=== PATIENT | female | born 1970 | race Hispanic/Latino ===

== ENCOUNTER 2019-07-23 07:47 | Outpatient (CLI) | payer OTHER ==
--- NOTE | 2019-07-23 09:45 | CT ---
EXAM: CT chest, abdomen, and pelvis with IV contrast: HISTORY: Recent diagnosis of malignant neoplasm central portion of right female breast. History of prior georges cystectomy and appendectomy. COMPARISON: None FINDINGS: CT THORAX: Lungs: No pulmonary nodule or mass is seen in the lungs bilaterally. No consolidation is identified. Pleura: No pleural effusion. Lymph nodes: No lymphadenopathy. Mediastinum: No acute process of the mediastinal structures. Chest wall: No abnormalities CT ABDOMEN AND PELVIS: Liver: Increased in craniocaudal dimensions measuring 18 cm. Gallbladder: Surgically absent\ Pancreas: Within normal limits. Spleen:Mildly enlarged in AP dimensions measuring 14 cm. Adrenal glands: Within normal limits. Kidneys: Within normal limits. Urinary Bladder: Mostly decompressed. Reproductive organs: A 5.2 cm hypodense mass is seen in the body and fundus of the uterus which does result in mass effect on the endometrial canal which does appear to contain small amount of fluid. This could potentially represent a uterine fibroid. Follow-up pelvic ultrasound may be helpful. Nabot hian cysts are seen in the cervix. Fluid attenuation hypodense cystic structure measuring 4 cm is seen in the right adnexal region likely related to an ovarian cyst. Bowel: A few minimal scattered colonic diverticula are seen. Opacified bowel is otherwise normal in a ppearance. Loops of small bowel are normal in caliber. Adenopathy:No lymphadenopathy within the abdomen or pelvis. Peritoneum: No free fluid or fluid collection is seen. No free intraperitoneal gas is identified. Abdominal wall: No abnormalities seen. Osseous structures: No suspicious lytic or sclerotic osseous lesions are identified. There are degene rative changes seen in the lower thoracic spine. IMPRESSION: 1. Hypodense mass in the body and fundus of the uterus probably representing a uterine fibroid. There is suggestion of small amount of fluid within the endometrial canal. Follow-up ultrasound examination is suggested for further evaluation. 2. Right ovarian cyst. 3. No CT findings to suggest metastatic disease. 4. Moderate enlargement liver and spleen which may be secondary to body habitus. 5. Postcholecystectomy changes.
--- NOTE | 2019-07-23 12:47 | NM ---
WHOLE BODY BONE SCAN: HISTORY: Malignant neoplasm of the central right female breast; back pain RADIOPHARMACEUTICAL: 30 mCi technetium-99m MDP injected intravenously. COMPARISON: None FINDINGS: No abnormal areas of tracer localization seen in the skeleton to suggest metastatic disease. Tracer excretion through the kidneys is within normal limits. IMPRESSION: No scintigraphic evidence of osseous metastatic disease.
[2019-07-23] MEDS ORDERED: Iopamidol 370 76% 100 ML VIAL ONE (13:13)
== END 2019-07-23 07:48 | disposition home or self-care (01) ==
LOC: CT 07:47
PROVIDERS: ATTEND Internal Medicine Hematology & Oncology
DX: C50.111 Malignant neoplasm of central portion of right female breast (principal); N85.8 Other specified noninflammatory disorders of uterus; N83.201 Unspecified ovarian cyst, right side; R16.0 Hepatomegaly, not elsewhere classified; R16.1 Splenomegaly, not elsewhere classified; Z90.49 Acquired absence of other specified parts of digestive tract
CPT/HCPCS: 71260; 74177; 78306; A9503; Q9967

== ENCOUNTER → 2019-10-03 | Day surgery (SDC) | payer OTHER ==
--- NOTE | 2019-10-03 13:38 | ULT ---
RIGHT BREAST ULTRASOUND: 10/03/19 INDICATIONS: Follow-up right breast mass and right axillary lymph node. Patient is currently on chemotherapy. Comparison made to right breast ultrasound dated 06/07/19. FINDINGS: The mass at 12 o'clock, 6 cm from nipple is again noted. This mass has decreased in size when compare d to the prior exam. Maximal AP dimension today recorded at 1.1 cm. Previous maximal AP dimension rec orded at 1.3 cm. Width today recorded at 0.7 cm. Prior width recorded at 1.3 cm. The volume of the ma ss on images does appear significantly decreased. A small somewhat hyperechoic lymph node in the right axilla measures 1.0 cm and appears similar to th e prior exam. No other axillary lymph node identified. IMPRESSION: The hypoechoic mass at 12 o'clock right breast has decreased in size when compared to prior study. POS: [facility]
== END ==
LOC: ULT 12:40
PROVIDERS: ATTEND Internal Medicine Hematology & Oncology
DX: C50.111 Malignant neoplasm of central portion of right female breast (principal); D50.8 Other iron deficiency anemias; Z79.899 Other long term (current) drug therapy
CPT/HCPCS: 93306

== ENCOUNTER 2020-01-11 06:24 | Outpatient (CLI) | payer OTHER ==
[2020-01-12 12:17] LABS: SARS-CoV-2 MS2 Positive; SARS-CoV-2 N Gene Negative; SARS-CoV-2 S Gene Negative; SARS-CoV-2 orf1ab Negative
== END 2020-01-11 06:25 | disposition home or self-care (01) ==
LOC: LABBT 06:24
PROVIDERS: ATTEND Plastic Surgery
DX: Z01.812 Encounter for preprocedural laboratory examination (principal); Z11.59 Encounter for screening for other viral diseases; Z85.3 Personal history of malignant neoplasm of breast
CPT/HCPCS: 87635; U0003

== ENCOUNTER → 2020-01-14 | Day surgery (SDC) | payer OTHER ==
[~2020-01-14] MED LIST: Bupivacaine 0.25% HCL 30 ML VIAL ONE; Dexamethasone 20 MG/5 ML VIAL ONE; EPINEPHrine 1 MG/ML AMP ONE; Fentanyl 100 MCG/2 ML VIAL IV PRN; Fentanyl 100 MCG/2 ML VIAL ONE; Gentamicin 80 MG/2 ML VIAL ONE; Glycopyrrolate 0.2 MG/ML 5 ML SYRINGE ONE; HYDROcodone/Acetaminophen 10/325 mg Tablet PO PRN; Heparin 5,000 UNITS/ML VIAL ONE; Ketorolac Tromethamine 30 MG/ML VIAL IVP PRN; Lidocaine 1% PF 5 ML VIAL ONE; Midazolam HCl 2 mg/2 ml Vial ONE; Ondansetron PF 4 MG/2 ML Vial IVP PRN; Ondansetron PF 4 MG/2 ML Vial ONE; PHENYLEPHRINE-NS 100 MCG/ML 10 ML SYRINGE ONE; PROPOFOL 200 MG/20 ML VIAL ONE; Promethazine HCl 25 MG/ML VIAL IM PRN; Ropivacaine 0.2% 550 ML 550 ML NERVE BLCK SCH; Ropivacaine 0.2% HCl/PF (40 MG/20 ML VIAL) ONE; Ropivacaine 0.2% HCl/PF 20 ML ONE; Ropivacaine 0.5% HCl/PF (150 MG/30 ML VIAL) ONE; Sodium Chloride 0.9% 10 ML ONE; Zolpidem Tartrate 5 MG TAB PO PRN; traMADol HCl 50 MG TAB PO PRN
--- NOTE | 2020-01-15 07:59 | OP ---
DATE OF PROCEDURE: 01/14/2020 PREOPERATIVE DIAGNOSIS: Breast cancer. POSTOPERATIVE DIAGNOSES: 1. Breast cancer. 2. Infected right breast seroma. DESCRIPTION OF PROCEDURE: Following induction of adequate anesthesia, the patient was prepped and draped in usual sterile fashion in supine position. Attention was first turned to the left side. The inframammary crease scar was incised. Dissection was carried up and down to the prior mastectomy pocket by elevating the mastectomy flap and then the internal Kalyan flap separately. An adequate prepectoral pocket was created. A 13-cm Artoura smooth round tool sharpener was placed and secured at the 8 o'clock and 6 o'clock positions with 2-0 Prolene sutures. Prior to placing the tool sharpener, the pocket was copiously irrigated with hypochlorite solution followed by antibiotic solution and Betadine solution. Antibiotic beads were also placed. The incisions were then closed with 3-0 PDS suture and 3-0 Monocryl suture. Attention was then turned to the left side. A fluid collection had been noted. Culture was sent for a stat concentrated Gram stain. Gram-positive cocci in pairs were identified. The breast, which was clinically uninfected, was deemed to be likely contaminated. The existing Coombs-pattern incision was opened. Some nonviable tissue was debrided from the 2 o'clock position on the nipple. With further debridement, I began to wonder if I had thus jeopardized the viability of the nipple. Therefore, the internal Kalyan flap was shortened to be thorough in debridement of skin and subcutaneous tissue. A seroma pocket was identified headed toward the axilla as well as in the subcutaneous space. A drain was placed in these after copious irrigation similarly described with antibiotic beads placed. The incisions were similarly closed. The patient tolerated procedure well. Job ID: [id number]
== END ==
LOC: SDC 07:55
PROVIDERS: ATTEND Plastic Surgery
PROC: 0HHV0NZ Insertion of Tissue Expander into Bilateral Breast, Open Approach (ICD-10-PCS; principal; 2020-01-14)
PROC: 3E0T3BZ Introduction of Anesthetic Agent into Peripheral Nerves and Plexi, Percutaneous Approach (ICD-10-PCS; principal; 2020-01-14)
DX: C50.911 Malignant neoplasm of unspecified site of right female breast (principal); N64.89 Other specified disorders of breast; G89.18 Other acute postprocedural pain; I10 Essential (primary) hypertension; Z79.899 Other long term (current) drug therapy
CPT/HCPCS: 87070; 87077; 87186; 87205; 88305; A4306; C1713; J0171; J0690; J1100; J1580; J1644; J2250; J2405; J2704; J2795; J3010; J3370; J3490; S0020

== ENCOUNTER 2020-01-18 10:03 | Emergency (ER) | payer OTHER | END 2020-01-18 11:01 | disposition home or self-care (01) | LOC: ER/OP 10:03 | DX: Z53.21 Procedure and treatment not carried out due to patient leaving prior to being seen by health care provider (principal) ==

== ENCOUNTER 2021-04-23 15:01 | Outpatient (CLI) | payer OTHER | END 2021-04-23 15:02 | disposition home or self-care (01) | LOC: BICMAMMO 15:01 | PROVIDERS: ATTEND Internal Medicine Hematology & Oncology | DX: Z13.820 Encounter for screening for osteoporosis (principal); M85.88 Other specified disorders of bone density and structure, other site; T38.6X5A Adverse effect of antigonadotrophins, antiestrogens, antiandrogens, not elsewhere classified, initial encounter | CPT/HCPCS: 77080 ==

== ENCOUNTER 2022-05-27 07:42 | Outpatient (CLI) | payer BC | END 2022-05-27 07:43 | disposition home or self-care (01) | LOC: BICMAMMO 07:42 | PROVIDERS: ATTEND Internal Medicine Hematology & Oncology | DX: Z13.820 Encounter for screening for osteoporosis (principal); T38.6X5A Adverse effect of antigonadotrophins, antiestrogens, antiandrogens, not elsewhere classified, initial encounter; M85.88 Other specified disorders of bone density and structure, other site | CPT/HCPCS: 77080 ==